=== PATIENT | male | born 1975 | race Two or more races ===

== ENCOUNTER → 2025-05-21 | Outpatient (CLI) | payer BC, SELFPAY ==
[2025-05-21 09:49] LABS: Basophils # (Auto) 0.0 Thou/mm3 (0.0-0.2); Basophils % (Auto) 1 % (0-2.5); Eosinophils # (Auto) 0.1 Thou/mm3 (0.0-0.5); Eosinophils % (Auto) 1 % (0-10); Hematocrit 52.4 % (41.0-53.0); Hemoglobin 18.0 g/dL (13.5-16.0); Immature Granulocytes Auto 0.03 Thou/mm3 (0.00-0.00); Lymphocytes # (Auto) 1.2 Thou/mm3 (1.0-4.8); Lymphocytes % (Auto) 22 % (10-50); Mean Corpuscular HGB Conc 34.4 g/dl (31.0-37.0); Mean Corpuscular Hemoglobin 31.8 pg (25.0-35.0); Mean Corpuscular Volume 93 fL (80-100); Monocytes # (Auto) 0.5 Thou/mm3 (0.0-0.8); Monocytes % (Auto) 10 % (0-12); Neutrophils # (Auto) 3.4 Thou/mm3 (1.8-7.7); Neutrophils % (Auto) 65 % (37-80); Nucleated Red Blood Cell # 0.00 Thou/mm3 (0.00-0.00); Nucleated Red Blood Cell % 0 /100 WBC (0); Platelet Count 267 Thou/mm3 (140-440); RDW Standard Deviation 46.4 fL (35.1-43.9); Red Blood Count 5.66 Miln/mm3 (4.50-5.90); White Blood Count 5.2 Thou/mm3 (3.8-10.6)
[2025-05-21 09:53] LABS: Glucose Estimated Average 103 mg/dL (80-131); Hemoglobin A1C 5.2 % Hgb (4.8-6.0)
[2025-05-21 09:57] LABS: Prostate Specific Antigen 1.81 ng/mL (0-4.00)
[2025-05-21 10:03] LABS: Vitamin D 25 Hydroxy Total 18.8 ng/mL (7.3-40.2)
[2025-05-21 10:05] LABS: Alanine Aminotransferase 84 U/L (10-49); Albumin, Serum 4.6 gm/dL (3.5-5.0); Albumin/Globulin Ratio 1.5 (1.2-2.2); Alkaline Phosphatase 61 U/L (46-116); Anion Gap 12 (7-16); Aspartate Amino Transferase 65 U/L (0-34); BUN/Creatinine Ratio 5 Ratio (12-20); Bilirubin,Total 0.6 mg/dL (0.3-1.2); Blood Urea Nitrogen 5 mg/dL (9-23); Calcium 10.9 mg/dL (8.3-10.6); Calcium (Corrected) 10.9 mg/dL (8.5-10.1); Carbon Dioxide 27.9 mMol/L (20.0-31.0); Cardiac Risk Estimate 2.2 RATIO (4.0-6.7); Chloride 102 mMol/L (98-107); Cholesterol 191 mg/dL (132-200); Creatinine (Component) 1.0 mg/dL (0.6-1.3); Free T4 (Free Thyroxine) 1.13 ng/dL (0.89-1.76); Globulin 3.1 gm/dL (2.3-3.5); Glucose 116 mg/dL (74-106); HDL Cholesterol 88 mg/dL (40-60); LDL Cholesterol,Calculated 89 mg/dL (0-130); Osmolality,Calculated 281 (275-295); Potassium 4.5 mMol/L (3.4-5.1); Sodium 142 mMol/L (136-145); Thyroid Stimulating Hormone 1.98 uIU/mL (0.55-4.78); Total Protein 7.7 gm/dL (5.7-8.2); Triglycerides 70 mg/dL (30-150); eGFR > 60 See Note
== END | disposition home or self-care (01) ==
LOC: COPL 08:01
PROVIDERS: PCP Internal Medicine; Referring Provider Internal Medicine; Visit Provider Internal Medicine
DX: Z00.01 Encounter for general adult medical examination with abnormal findings (principal); N40.1 Benign prostatic hyperplasia with lower urinary tract symptoms; E55.9 Vitamin D deficiency, unspecified
CPT/HCPCS: 36415; 80053; 80061; 82306; 83036; 84153; 84439; 84443; 85025

== ENCOUNTER 2025-09-13 12:05 | Emergency (ER) | payer BC, SELFPAY ==
[2025-09-13 12:05] VITALS: BMI 30.8
--- NOTE | 2025-09-13 12:08 | EKG_ITS ---
[facility] Test Date: 2025-09-13 Pat Name: RETA BLAND Department: Room: - Gender: Male [employer]: : 1975 Requested By: Dominick Barlow Order Number: [id number] Reading MD: Dominick Barlow Measurements Intervals [place] Rate: 116 P: 28 PA: 175 QRS: -42 QRSD: 91 T: 21 QT: 309 QTc: 431 Interpretive Statements SINUS TACHYCARDIA LEFT AXIS DEVIATION [QRS AXIS < -30] POSSIBLE ANTERIOR MYOCARDIAL INFARCTION , PROBABLY OLD [30 ms Q WAVE IN V3/V4, OR R < 0.2 mV IN V4] Compared to ECG 04/03/2024 15:13:49 Sinus rhythm no longer present Ventricular premature complex(es) no longer present Myocardial infarct finding still present /store/S0/[id number].pdf
[2025-09-13 12:10] VITALS: BP 171/115; PULSE 123; RESP 19; TEMP 36.7; O2SAT 96
--- NOTE | 2025-09-13 12:19 | XR_ITS ---
EXAMINATION: PA chest single view TECHNIQUE: Upright PA chest single view Date and time: September 13, 2025, 1225 hours, comparison April 03, 2024 INDICATION: Shortness of breath today FINDINGS: Stable nodule in the left lower lung zone Normal heart size No pneumonia or pulmonary edema Old fracture left clavicle IMPRESSION: No pneumonia or pulmonary edema
--- NOTE | 2025-09-13 12:19 | PD.EDRME ---
Rapid Medical Screening Exam RME Arrival date/time: 09/13/25 12:05 50-year-old male with no known medical history presents to the emergency room with a chief complaint of left-sided 10 out of 10 sternal chest pain that radiates up his left arm x 2 hours I have greeted and performed a focused initial assessment of this patient. A comprehensive ED assessment and evaluation of the patient, analysis of all test results, and completion of the medical decision making process will be conducted by additional ED providers. Chief Complaint: Chest Pain Time Seen by Provider: 09/13/25 12:19 Vital signs: Vital Signs Temperature 98.1 F 09/13/25 12:10 Pulse Rate 123 H 09/13/25 12:10 Respiratory Rate 19 09/13/25 12:10 Blood Pressure 171/115 H 09/13/25 12:10 Pulse Oximetry (%) 96 09/13/25 12:10 Oxygen Delivery Method Room Air 09/13/25 12:10 Vital signs reviewed by provider: Yes Exam: The patient has 10 out of 10 left-sided sternal chest pain that radiates up the left arm Clear bilateral lung sounds GCS of 15 Clinical Impression: STEMI/NSTEMI/chest pain
--- NOTE | 2025-09-13 12:24 | EDNOTE_ITS ---
ED Chest Pain RME/HPI General Chief Complaint: Chest Pain Stated Complaint: CHEST PAIN X10 MINS AND NAUSEA Time Seen by Provider: 09/13/25 12:19 Arrival date/time: 09/13/25 12:05 50-year-old male patient with significant history of hypertension, came in for evaluation regarding left-sided chest pain. Onset of symptoms about 10 minutes prior to ER visit as sudden onset of left-sided chest pain, it happened while patient was driving, associated with nausea. Patient denies any shortness of breath. Denies any headache denies any vomiting denies any abdominal pain. Patient told me that for the last few days he is not taking his losartan and aspirin due to ran out of medication. 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 Patient body presser is Dr. Loving. RME / HPI RME / HPI narrative: 09/13/25 12:05 50-year-old male with no known medical history presents to the emergency room with a chief complaint of left-sided 10 out of 10 sternal chest pain that radiates up his left arm x 2 hours I have greeted and performed a focused initial assessment of this patient. A comprehensive ED assessment and evaluation of the patient, analysis of all test results, and completion of the medical decision making process will be conducted by additional ED providers. Exam: The patient has 10 out of 10 left-sided sternal chest pain that radiates up the left arm Clear bilateral lung sounds GCS of 15 Impression: STEMI/NSTEMI/chest pain Related Data Allergies Allergy/AdvReac Type Severity Reaction Status Date / Time NKA* Allergy Uncoded 09/13/25 12:07 Review of Systems Review of Systems Narrative Review of Systems: Review of system reviewed and within normal limits except mentioned in HPI ED Exam Narrative Physical exam: VITAL SIGNS: Reviewed. GENERAL APPEARANCE: Alert and interactive, follows commands, no acute distress, HEAD AND FACE: Non-traumatic. ENT: PERRL, pink conjunctivitis, eyelid no trauma, Mucous membrane moist. NECK: Supple, nontender, no nuchal rigidity. CHEST: Left-sided tenderness, no crepitus, no paradoxical movement, no retractions. LUNGS: Clear, well ventilated, symmetric, no rales, no wheezing, no ronchi, no stridor, good breath sounds bilaterally. HEART: Regular rate, regular rhythm, no murmur, no gallops. ABDOMEN: Soft, positive bowel sounds, nondistended, no guarding, nontender, no rebound, no masses, RECTAL: Deferred. GENITAL: Deferred. NEUROLOGICAL: Gross motor function intact sensory function intact, Appropriate for age. MUSCULOSKELETAL: low back nontender, full range of motion. EXTREMITIES: Nontender, full range of motion. SKIN: Color pink, dry, no rash, no lacerations, no abrasions, no contusions. LYMPHATICS: Deferred. Course Quality Measures none Orders Category Date Time Status EKG (ED ONLY) *Do not use* NOW Care 09/13/25 12:08 Completed EKG (ED Only) Stat Exams 09/13/25 12:08 Draft XR chest 1V portable Stat Exams 09/13/25 12:19 Completed Drug Screen,Urine Stat Lab 09/13/25 13:30 Completed Urinalysis, C/S if Indicated Stat Lab 09/13/25 13:30 Completed Aspirin Med 09/13/25 12:24 Discontinued 325 mg PO X1 ONE Ondansetron Odt [Zofran Odt] Med 09/13/25 12:19 Discontinued 4 mg PO X1 ONE cloNIDine HCL [Catapres] Med 09/13/25 12:19 Discontinued 0.1 mg PO X1 ONE hydrALAZINE HCL [Apresoline] Med 09/13/25 12:23 Discontinued 50 mg PO X1 ONE Vital Signs Vital signs: Vital Signs Temperature 98.1 F 09/13/25 12:10 Pulse Rate 123 H 09/13/25 12:10 Respiratory Rate 19 09/13/25 12:10 Blood Pressure 171/115 H 09/13/25 12:10 Pulse Oximetry (%) 96 09/13/25 12:10 Oxygen Delivery Method Room Air 09/13/25 12:10 Chest Pain MDM Narrative MDM Narrative:: 50-year-old male patient with significant history of hypertension, came in for evaluation regarding left-sided chest pain. Onset of symptoms about 10 minutes prior to ER visit as sudden onset of left-sided chest pain, it happened while patient was driving, associated with nausea. Patient denies any shortness of breath. Denies any headache denies any vomiting denies any abdominal pain. Patient told me that for the last few days he is not taking his losartan and asp irin due to ran out of medication. 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 Patient body presser is Dr. Loving. I personally reviewed and interpreted the x-ray of this patient. There is no acute abnormalities found, no infiltrates no pneumothorax no hemothorax normal chest x-ray. Review of other structures was without significant abnormal findings also. I additionally reviewed the radiologist report and agree with the interpretation. EKG showed sinus tachycardia, ventricular rate of 116 bpm, no ST segment ovation depression noted. Patient received hydralazine and aspirin 325 mg p.o. I was informed by the nurse that the patient eloped from the emergency room. We tried calling him and is not answering the phone. Patient data External records reviewed:: None Clinical information provided by:: family Social determinants that could affect healthcare access:: none Patient has the following chronic illnesses:: Hypertension How is presenting disease/condition affected by chronic disease/condition?: exacerbated by Evaluation data The following diagnostics were reviewed and interpreted by me:: lab results, radiology exam(s) and EKG tracing(s) Lab and/or radiology exams considered but not ordered:: None Interpretation Summary: Labs are not done patient eloped Medications / Prescriptions Medications or Prescriptions considered but not ordered:: None Medication administrations:: Medication Administration History Discontinued Medications Aspirin (Aspirin 325 Mg Tablet) 325 mg PO X1 ONE Stop: 09/13/25 12:25 Last Admin: 09/13/25 12:57 Dose: 325 mg Documented By: SALTY Clonidine (Clonidine Hcl 0.1 Mg Tablet) 0.1 mg PO X1 ONE Stop: 09/13/25 12:20 Last Admin: 09/13/25 13:00 Dose: Not Given Documented By: Non-Admin Reason: Cancelled by Provider Hydralazine HCl (Hydralazine Hcl 25 Mg Tablet) 50 mg PO X1 ONE Stop: 09/13/25 12:24 Last Admin: 09/13/25 12:57 Dose: 50 mg Documented By: SALTY Ondansetron HCl (Ondansetron Odt 4 Mg Tabrap) 4 mg PO X1 ONE; Protocol Stop: 09/13/25 12:20 Last Admin: 09/13/25 12:57 Dose: 4 mg Documented By: SALTY Zofran, hydralazine, aspirin Consultations Consultation(s) initiated? (list below): No Diagnosis Chest Pain Differential Diagnosis: pneumothorax, costochondritis and chest pain Most likely diagnosis given after review of the tests above:: Chest pain Admission Indicated Admission indicated?: not indicated Admission Request Was there a request for admission?: No Disposition Plan Disposition Plan: other (specify) Discharge Attestation Discharge Attestation: Elopement Discharge Plan Plan Patient Disposition: Elopement Problem List Clinical Impression: Chest pain Patient/Caregiver Discharge Instructions Print Language: [place] Citizen
[2025-09-13 12:57] VITALS: BP 171/115; PULSE 123
[2025-09-13] MEDS: ONDANSETRON ODT 4 MG TABRAP PO (12:57)
--- NOTE | 2025-09-13 13:24 | PC.NURSE ---
CALLED FROM LOBBY FOR ROOM AND NO ANSWER.
[2025-09-13 13:46] LABS: Collection Type, Urine Clean Catch
[2025-09-13 13:51] LABS: Bilirubin,Urine Negative (Negative); Blood,Urine Negative (Negative); Clarity,Urine Clear (Clear/Hazy); Color,Urine Lt-Yellow (Lt Yel-Yel); Culture Indicated,Urine Not Indicated; Glucose, Urine 3+ (Negative); Ketones,Urine Negative (Negative); Leukocyte Esterase,Urine Negative (Negative); Nitrite,Urine Negative (Negative); PH,Urine 6.5 (5.0-7.0); Protein,Urine Negative (Neg - Trace); RBC,Urine 241 /hpf (0-3); Specific Gravity,Urine 1.017 (1.001-1.035); Squamous Epithelial Cell,Urine < 1 /hpf (0-5); Urobilinogen,Urine Negative mg/dL (0.0-1.0); WBC,Urine 1 /hpf (0-5)
--- NOTE | 2025-09-13 13:53 | PC.NURSE ---
NA x 3 AT 1257, 1324, 1350, called by staff in lobby and outside with no answer x3.
[2025-09-13 13:57] LABS: Amphetamine/Methamp Scrn,U Negative (Negative); Barbiturate Screen,Urine Negative (Negative); Benzodiazepines Screen,Urine Negative (Negative); Benzoylecgonine Screen, Ur Negative (Negative); Fentanyl Screen,Urine Negative (Negative); Opiate Screen,Urine Negative (Negative); THC Screen,Urine Negative (Negative)
== END 2025-09-13 12:57 | disposition left against medical advice (07) ==
LOC: SERX 15:02
PROVIDERS: Nurse Practitioner Family; Emergency Provider Emergency Medicine; PCP Student in an Organized Health Care Education/Training Program
DX: R07.89 Other chest pain (principal); R00.0 Tachycardia, unspecified; I10 Essential (primary) hypertension; T46.5X6A Underdosing of other antihypertensive drugs, initial encounter
CPT/HCPCS: 71045; 80053; 80307; 81001; 83735; 83880; 84439; 84443; 84484; 85025; 85379; 85610; 85730; 93005; 99283; Q0162; A9270